=== PATIENT | male | born 1960 | race Asian ===

== ENCOUNTER 2021-09-12 04:53 | Outpatient (CLI) | payer SELFPAY | END 2021-09-12 04:54 | disposition critical access hospital (66) | LOC: EMS 04:53 | DX: R42 Dizziness and giddiness (principal); R53.1 Weakness; W18.30XA Fall on same level, unspecified, initial encounter; Y92.002 Bathroom of unspecified non-institutional (private) residence as the place of occurrence of the external cause | CPT/HCPCS: A0425; A0429 ==

== ENCOUNTER 2021-09-12 05:14 | Emergency (ER) | payer SELFPAY ==
--- NOTE | 2021-09-12 05:25 | ED Physician Documentation ---
PD HPI FOCAL NEURO - Stated complaint Stated Complaint: FOUND ON FLOOR, LEFT FACIAL DROOP, ARM WEAKNESS - Chief complaint Chief Complaint: Neuro - History obtained from History obtained from: EMS - Additional information Additional information: 61-year-old gentleman reportedly healthy brought in by ambulance as a stroke code. Not much is known about when it started but reportedly went to bed may be at 1 AM in his usual state of health and was found found on the floor to have significant left-sided deficits. He is unable to provide any history. 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 She corroborates the above history. Review of Systems Unable to obtain: AMS PD PAST MEDICAL HISTORY - Present Medications Home Medications: Ambulatory Orders Medication Instructions Recorded Confirmed No Known Home Medications 09/12/21 09/12/21 - Allergies Allergies/Adverse Reactions: Allergies Allergy/AdvReac Type Severity Reaction Status Date / Time No Known Drug Allergies Allergy Verified 09/12/21 05:57 PD ED PE NORMAL - Vitals Vital signs reviewed: Yes - General General: No acute distress, Well developed/nourished - Neck Neck: Supple, no meningeal sign, No bony TTP - Neuro Neuro: Other (He has a significant right gaze preference and does not respond to threat on the left. He is able to talk but it is nonsensical. He does not respond to painful stimulus in the left upper or lower extremity and has no motion of the left upper or lower extremity.) NIHSS - Time Time: 05:20 - Level of Consciousness Level of consciousness: (1) Not alert, but arousable by minor stimulation to obey, or answer LOC Questions: (2) Answers neither correct LOC Commands: (0) Performs both correctly - Gaze Best Gaze: (2) Forced deviation - Visual Visual: (2) Complete Hemianopia - Facial Palsy Facial Palsy: (2) Partial paralysis - Motor Arms (both separate) Motor Arm (right): (0) No drift Motor Arm (left): (4) No movement - Motor Legs (both separate) Motor Leg (right): (0) No drift Motor Leg (left): (4) No movement - Limb Ataxia Limb Ataxia: (0) Absent - Sensory Sensory: (2) Itbqjl-da-sanpd loss - Best Language Best Language: (2) Severe aphasia - Dysarthria Dysarthria: (0) Normal - Extinction and Inattention (formally neg Extinction and inattention: (2) Profound leandro-inattention or extinction to more than one modality - Total Score/Results Total Score/Result: 23 Results - Vitals Vitals: Vital Signs - 24 hr 09/12/21 09/12/21 09/12/21 05:16 05:17 06:08 Temperature 36.1 C L Heart Rate 97 89 88 Respiratory 19 17 16 Rate Blood Pressure 124/50 L 112/73 112/73 O2 Saturation 100 100 99 Oxygen O2 Source Room air - EKG (time done) 0538 Rate: Rate (enter#) (97) Rhythm: NSR [place]: Normal Intervals: Normal AL QRS: Normal Ischemia: Non specific changes. No: ST elevation c/w ischemia, ST depression - Labs Labs: Laboratory Tests 09/12/21 05:53 WBC 8.3 RBC 3.43 L Hgb 10.7 L Hct 33.6 L MCV 98.0 H MCH 31.2 H MCHC 31.8 L RDW 12.7 Plt Count 134 MPV 9.1 Neut # (Auto) 5.1 Lymph # (Auto) 2.1 [place] # (Auto) 0.7 Eos # (Auto) 0.4 Baso # (Auto) 0.0 Absolute Nucleated RBC 0.00 Nucleated RBC % 0.0 - Rads (name of study) T of the head was normal, angiography shows acute right MCA M1 segment occlusion Radiology: EMP read contemporaneously PD MEDICAL DECISION MAKING - ED course ED course: 61-year-old gentleman's presents with a disabling stroke syndrome with left- sided deficits. Plain CT of the head was negative, to my eye the CT angiography showed a right MCA occlusion. This was discussed with our telestroke neurologist who agrees and feels the patient should go to an LVO capable facility, but the patient arrived with only about 10 or 15 minutes left in the 4-1/2-hour TPA window so does not recommend TPA for this "wake up" stroke. We contacted both [facility] and [facility] for potential acceptance for LVO retrieval. Unfortunately due to weather helicopter looks like it will not be able to fly. Departure - Departure Disposition: 02 Transfer Acute Care Hosp Clinical Impression: Cerebrovascular accident (CVA), Acute right MCA stroke Condition: Critical
[2021-09-12 06:02] LABS: BASOPHILS % (AUTO) 0.5 %; EOSINOPHILS # (AUTO) 0.4 10^3/uL (0.0-0.7); HCT - HEMATOCRIT 33.6 % (42.0-52.0); HGB - HEMOGLOBIN 10.7 g/dL (14.0-18.0); LYMPHOCYTES # (AUTO) 2.1 10^3/uL (1.5-3.5); LYMPHOCYTES % (AUTO) 24.9 %; MEAN CORPUSCULAR HEMOGLOBIN 31.2 pg (27.0-31.0); MEAN CORPUSCULAR HGB CONC 31.8 g/dL (32.0-36.0); MEAN PLATELET VOLUME 9.1 fL (7.4-11.4); MONOCYTES # (AUTO) 0.7 10^3/uL (0.0-1.0); NEUTROPHILS # (AUTO) 5.1 10^3/uL (1.5-6.6); NEUTROPHILS % (AUTO) 61.4 %; PLT - PLATELET COUNT 134 10^3/uL (130-450); RED BLOOD COUNT 3.43 10^6/uL (4.70-6.10); RED CELL DISTRIBUTION WIDTH 12.7 % (12.0-15.0); WHITE BLOOD COUNT 8.3 x10^3/uL (4.8-10.8)
[2021-09-12 06:06] LABS: INR 1.2 (0.8-1.2)
[2021-09-12 06:12] LABS: ALBUMIN 3.1 g/dL (3.2-5.5); ALBUMIN/GLOBULIN RATIO 0.6 (1.0-2.2); BILIRUBIN,TOTAL 0.5 mg/dL (0.2-1.0); CALCIUM 9.1 mg/dL (8.5-10.3); CREATININE 0.8 mg/dL (0.6-1.2); POTASSIUM 3.5 mmol/L (3.5-5.0); TOTAL PROTEIN 8.7 g/dL (6.7-8.2)
[2021-09-12 06:35] VITALS: BP 99/70
[2021-09-12] MEDS ORDERED: iohexoL-300 100 ML VIAL IVP ONE (06:40)
[2021-09-12 06:59] LABS: B. PARAPERTUSSIS- RESP PCR PAN NOT DETECTED; B. PERTUSSIS- RESP PCR PANEL NOT DETECTED; C. PNEUMONIAE- RESP PCR PANEL NOT DETECTED; CORONAVIRUS 229E-RESP PCR NOT DETECTED; CORONAVIRUS HKU1-RESP PCR NOT DETECTED; CORONAVIRUS NL63-RESP PCR NOT DETECTED; CORONAVIRUS OC43-RESP PCR NOT DETECTED; HUMAN METAPNEUMOVIRUS NOT DETECTED; INFLUENZA A- RESP PCR PANEL NOT DETECTED; INFLUENZA B - RESP PCR PANEL NOT DETECTED; M. PNEUMONIAE- RESP PCR PANEL NOT DETECTED; PARAINFLUENZA VIRUS 1 NOT DETECTED; PARAINFLUENZA VIRUS 2 NOT DETECTED; PARAINFLUENZA VIRUS 3 NOT DETECTED; PARAINFLUENZA VIRUS 4 NOT DETECTED; RHINOVIRUS/ENTEROVIRUS NOT DETECTED; RSV- RESP PCR PANEL NOT DETECTED; SARS-CoV-2 -RESP PCR PANEL NOT DETECTED
--- NOTE | 2021-09-12 07:59 | CT Report ---
PROCEDURE: Head W/O Stroke Protocol INDICATIONS: stroke symptoms TECHNIQUE: Noncontrast 4.5 mm thick angled axial sections acquired from the foramen magnum to the vertex, with c oronal reformats. For radiation dose reduction, the following was used: automated exposure control, adjustment of mA and/or kV according to patient size. COMPARISON: FINDINGS: Image quality: Excellent. CSF spaces: Basal cisterns are patent. No extra-axial fluid collections. Ventricles are normal in size and shape. Brain: No midline shift. No intracranial masses or hemorrhage. Cano-white matter interface is norm al. Skull and face: Calvarium and visualized facial bones are intact, without suspicious lesions. Sinuses: Visualized sinuses and mastoids are clear. IMPRESSION: No acute intracranial disease process. This study fulfills neurological imaging criteria for inclusion or exclusion of acute stroke therapie s based on available published neurological imaging guidelines. Reviewed by: Mireya Lei MD, PhD on 09/12/2021 7:58 AM PST Approved by: Mireya Lei MD, PhD on 09/12/2021 7:58 AM PST Station ID: [id number]
--- NOTE | 2021-09-12 08:11 | CT Report ---
PROCEDURE: ANGIO NECK W INDICATIONS: stroke symptoms CONTRAST: IV CONTRAST: Isovue 300 ml: 100 PO CONTRAST: *NO PO CONTRAST TECHNIQUE: After the administration of intravenous contrast, 1.5 mm axial sections acquired from the aortic arch to the [place] of [place]. Coronal 3-D maximum intensity projection (MIP) and/or volume rendering ref ormats were then performed. For radiation dose reduction, the following was used: automated exposur e control, adjustment of mA and/or kV according to patient size. COMPARISON: None. FINDINGS: Image quality: Degraded by patient motion artifact. Carotid system: The great vessels demonstrate a conventional anatomy as they arise from the aortic a rc. The origins of the common carotid arteries appear patent. The common carotid arteries demonstr ate normal calibers and courses. The bifurcation regions appear normal bilaterally. The cervical se gment internal carotid arteries demonstrate normal caliber and course. Thrombus is identified in the terminus of the intracranial right internal carotid artery which extends into the right middle cerebr al artery. Posterior circulation: The origins of the vertebral arteries appear patent. The more superior porti ons of the vertebral arteries demonstrate normal course and caliber. They join to form a normal appe aring basilar artery. Soft tissues: Visualized neck soft tissues demonstrate no suspicious abnormalities. The thyroid is normal in size and there are no incidental findings. Bones: Mild mucosal thickening noted in the maxillary sinuses bilaterally. No suspicious bony lesion s. Visualized cervical spine appears normally aligned. IMPRESSION: 1. Origins of the internal carotid arteries are fully patent. 2. Vertebral arteries are fully patent. 3. Thrombus identified in the terminus of the intracranial segment of the right internal carotid caio ry which extends into the right middle cerebral artery. The estimate of stenosis included in the report of the imaging study was calculated using the NASCET method Reviewed by: Mireya Lei MD, PhD on 09/12/2021 8:10 AM PST Approved by: Mireya Lei MD, PhD on 09/12/2021 8:10 AM PST Station ID: [id number]
--- NOTE | 2021-09-12 08:23 | CT Report ---
PROCEDURE: ANGIO HEAD W/WO INDICATIONS: stroke symptoms CONTRAST: IV CONTRAST: Isovue 300 ml: 100 PO CONTRAST: *NO PO CONTRAST TECHNIQUE: Precontrast 4.5 mm thick angled axial sections acquired from the foramen magnum to the vertex. Afte r the administration of intravenous contrast, 1 mm thick sections acquired through the [place] of [place] is. Postcontrast 4.5 mm thick sections then re-acquired from the foramen magnum to the vertex. 3-di mensional ntvfexf-nlccdfrog-uxingkweef (MIP) and/or volume rendering reformats were acquired of the c entral intracranial vasculature. For radiation dose reduction, the following was used: automated ex posure control, adjustment of mA and/or kV according to patient size. COMPARISON: None FINDINGS: Image quality: Excellent. Anterior circulation: Thrombus is identified in the terminus of the right internal carotid artery and the M1 segment of the right middle cerebral artery. Normal flow noted in the left internal carotid a rtery in the left middle cerebral artery. The flow within the paired anterior cerebral arteries is no rmal and symmetric. The anterior communicating artery is seen. No aneurysms are seen. Posterior circulation: Visualized portions of the vertebral arteries demonstrate normal caliber, and join to form a normal appearing basilar artery. Flow within the posterior cerebral arteries is norm al and symmetric. No aneurysms are seen. Dural sinuses demonstrate normal postcontrast enhancement. CSF spaces: Ventricles are normal in size and shape. Basal cisterns are patent. No extra-axial flu id collections. Brain: No midline shift. No intracranial bleeds or masses. Loss of thorne-white matter infiltration n oted in the right insula, right basal ganglia and the lateral margin of the right thalamus. Skull and face: Calvarium and facial bones appear intact, without suspicious lesions. Sinuses: Mild mucosal thickening in the maxillary sinuses. The mastoids are clear. IMPRESSION: 1. Thrombus involving the right ICA terminus and M1 segment of the right middle cerebral artery. 2. Acute infarct involving the right insula, right basal ganglia and lateral margin of the right thal amus. Reviewed by: Mireya Lei MD, PhD on 09/12/2021 8:22 AM PST Approved by: Mireya Lei MD, PhD on 09/12/2021 8:22 AM PST Station ID: [id number]
== END 2021-09-12 07:00 | disposition short-term general hospital (02) ==
LOC: ED 05:14
DX: I63.511 Cerebral infarction due to unspecified occlusion or stenosis of right middle cerebral artery (principal); R29.723 NIHSS score 23; Z20.822 Contact with and (suspected) exposure to COVID-19
CPT/HCPCS: 0202U; 36415; 70450; 70496; 70498; 80053; 83735; 85025; 85610; 93005; 99283; 99285

== ENCOUNTER 2021-09-12 07:06 | Outpatient (CLI) | payer SELFPAY | END 2021-09-12 07:07 | disposition short-term general hospital (02) | LOC: EMS 07:06 | PROVIDERS: ATTEND Emergency Medicine | DX: I63.311 Cerebral infarction due to thrombosis of right middle cerebral artery (principal); G81.94 Hemiplegia, unspecified affecting left nondominant side; R47.81 Slurred speech; H91.92 Unspecified hearing loss, left ear | CPT/HCPCS: A0425; A0428 ==